=== PATIENT | female | born 1960 | race Caucasian/White ===

== ENCOUNTER → 2018-08-02 | Outpatient (CLI) | payer OTHER ==
--- NOTE | 2018-08-04 13:27 | MM ---
Reason for exam: screening (asymptomatic). Last mammogram was performed 2 years and 2 months ago. History: Patient is postmenopausal. Took hormonal contraceptives for 2 years. Physical Findings: A clinical breast exam by your physician is recommended on an annual basis and results should be correlated with mammographic findings. MG Screening Mammo w CAD Bilateral CC and MLO view(s) were taken. Prior study comparison: May 25, 2016, bilateral MG screening mammo w CAD. February 23, 2015, bilateral MG screening mammo w CAD. The breast tissue is heterogeneously dense. This may lower the sensitivity of mammography. No significant changes when compared with prior studies. ASSESSMENT: Negative, BI-RAD 1 RECOMMENDATION: Routine screening mammogram of both breasts in 1 year.
== END ==
LOC: RADMAMWWP 09:04
PROVIDERS: ATTEND Obstetrics & Gynecology
DX: Z12.31 Encounter for screening mammogram for malignant neoplasm of breast (principal)
CPT/HCPCS: 77067

== ENCOUNTER → 2018-08-18 | Outpatient (CLI) | payer OTHER ==
--- NOTE | 2018-08-19 04:33 | CT ---
EXAMINATION TYPE: CT facial bones wo/w con DATE OF EXAM: 08/18/2018 COMPARISON: None HISTORY: 57 year-old female left cheek swelling for one year TECHNIQUE: Contiguous axial scanning of the facial bones before and after administration of 100 mL Is ovue 300 IV contrast. Coronal reconstructions performed. CT DLP: 1297.4 mGycm Automated exposure control for dose reduction was used. FINDINGS: There is rightward nasal septal deviation. No facial bone fractures. Orbits and globes appear intact. Visualized intracranial structures show no gross abnormality. Left-sided conchal bullosa incidentally noted. Only trace mucosal thickening right maxillary sinus. Partially visualized parotid glands appear atrophic. There is dental amalgam artifact which causes so me limitation. Submandibular glands appear satisfactory and symmetrical. Nasopharynx and oropharynx appear clear. Some asymmetrically larger lymph nodes in the left submandib ular region measuring up to 7 mm. IMPRESSION: 1. RIGHTWARD NASAL SEPTAL DEVIATION, TRACE MUCOSAL THICKENING RIGHT MAXILLARY SINUS, AND INCIDENTAL L EFT-SIDED CONCHAL BULLOSA. 2. SOME ASYMMETRICALLY LARGER LEFT SUBMANDIBULAR SPACE LYMPH NODES MEASURING UP TO 7 MM, PROBABLY JANES CTIVE/POST INFLAMMATORY. 3. ATROPHIC PAROTID GLANDS PARTIALLY VISUALIZED. NO SPECIFIC ABNORMALITY OTHERWISE SEEN.
== END ==
LOC: RADCTMAIN 17:30
PROVIDERS: ATTEND Otolaryngology
DX: R22.0 Localized swelling, mass and lump, head (principal)
CPT/HCPCS: 70488; Q9967

== ENCOUNTER → 2019-06-01 | Outpatient (CLI) | payer OTHER ==
--- NOTE | 2019-06-01 10:52 | ECHOF ---
Referral Reason:[id number] Dizziness MEASUREMENTS -------- HEIGHT: 162.6 cm WEIGHT: 59.0 kg BP: 126/69 RVIDd: 2.9 cm (< 3.3) IVSd: 1.1 cm (0.6 - 1.1) LVIDd: 2.9 cm (3.9 - 5.3) LVPWd: 0.9 cm (0.6 - 1.1) IVSs: 1.4 cm LVIDs: 2.5 cm LVPWs: 1.4 cm LA Diam: 2.9 cm (2.7 - 3.8) LAESV Index (A-L): 23.36 ml/m Ao Diam: 2.6 cm (2.0 - 3.7) AV Cusp: 1.7 cm (1.5 - 2.6) MV EXCURSION: 14.555 mm (> 18.000) MV EF SLOPE: 172 mm/s (70 - 150) EPSS: 0.3 cm MV E Irwin: 0.83 m/s MV DecT: 129 ms MV A Irwin: 0.90 m/s MV E/A Ratio: 0.92 RAP: 5.00 mmHg RVSP: 26.68 mmHg TAPSE: 21.80 mm FINDINGS -------- Sinus rhythm. This was a technically adequate study. The left ventricular size is normal. There is borderline concentric left ventricular hypertrophy. Overall left ventricular systolic function is normal with, an EF between 55 - 60 %. The right ventricle is normal in size. Normal LA size by volume 22+/-6 ml/m2. The right atrial size is normal. Interatrial and interventricular septum intact. The aortic valve is trileaflet, and appears structurally normal. No aortic stenosis or regurgitation. The mitral valve is normal. There is trace to mild mitral regurgitation. Mild tricuspid regurgitation present. Right ventricular systolic pressure is normal at < 35 mmHg. The right ventricular systolic pressure, as measured by Doppler, is 26.68mmHg. There is no pulmonic regurgitation present. The aortic root size is normal. Normal inferior vena cava with normal inspiratory collapse consistent with estimated right atrial pre ssure of 5 mmHg. There is no pericardial effusion. CONCLUSIONS -------- 1. Sinus rhythm. 2. This was a technically adequate study. 3. The left ventricular size is normal. 4. There is borderline concentric left ventricular hypertrophy. 5. Overall left ventricular systolic function is normal with, an EF between 55 - 60 %. 6. Normal LA size by volume 22+/-6 ml/m2. 7. The aortic valve is trileaflet, and appears structurally normal. No aortic stenosis or regurgitati on. 8. The mitral valve is normal. 9. There is trace to mild mitral regurgitation. 10. Mild tricuspid regurgitation present. 11. Right ventricular systolic pressure is normal at < 35 mmHg. 12. There is no pulmonic regurgitation present. 13. There is no pericardial effusion. REGULATION SUPERVISOR: Shwetha Al RDCS
--- NOTE | 2019-06-05 11:27 | HM ---
HOLTER MONITOR REPORT Patient was monitored for 24 hours. Baseline rhythm is sinus mechanism with normal conduction. The average rate 73 beats per minute, minimum 48, maximum 117 beats per minute. Ventricular ectopic activity was present in form of rare single PACs. No supraventricular ectopic activity was noted. No diary was available. CONCLUSION: 1. Sinus mechanism baseline rhythm. 2. Rare supraventricular ectopic activity. 3. No ventricular ectopic activity. 4. No diary was available. MMODL / IJN: [id number] /
== END | disposition home or self-care (01) ==
LOC: RADECHMAIN 08:26
PROVIDERS: ATTEND Family Medicine
DX: I08.1 Rheumatic disorders of both mitral and tricuspid valves (principal); R94.39 Abnormal result of other cardiovascular function study
CPT/HCPCS: 93225; 93226; 93306

== ENCOUNTER → 2023-11-20 | Outpatient (CLI) | payer BC ==
--- NOTE | 2023-11-20 11:26 | BD ---
EXAMINATION TYPE: Axial Bone Density DATE OF EXAM: 11/20/2023 CLINICAL HISTORY: 63 years old Female. ICD-10 CODE: Z13.820 ENCOUNTER FOR SCREENING FOR OSTEOPOROSIS Height: 64 Weight: 129.7 FRAX RISK QUESTIONS: Alcohol (3 or more units per day): no Family History (Parent hip fracture): no Glucocorticoids (More than 3mos): no (Ex: prednisone, prednisolone, methylprednisolone, dexamethasone, and hydrocortisone). History of Fracture in Adulthood: no Secondary Osteoporosis: 1. Type 1 Diabetes: no 2. Hyperthyroidism: no 3. Menopause before 45: no 4. Malnutrition: no 5. Chronic liver disease: no Rheumatoid Arthritis: no Current Tobacco Use: no RISK FACTORS HISTORY OF: Surgery to Spine/Hip(right/left)/Wrist (right/left): no EXAM MEASUREMENTS: Bone mineral densitometry was performed using the [employer] System. Bone mineral density as measured about the Lumbar spine is: ----- L1-L4(G/cm2): 0.893 T Score Values are as follows: ----- L1: -2.1 ----- L2: -2.4 ----- L3: -2.5 ----- L4: -2.6 ----- L1-L4: -2.4 Z Score Values are as follows: ----- L1: -0.3 ----- L2: -0.6 ----- L3: -0.7 ----- L4: -0.8 ----- L1-L4: -0.6 Bone mineral density has: decreased -15.8 % since study of: 02.23.2015 Bone mineral density about the R hip (g/cm2): 0.798 Bone mineral density about the L hip (g/cm2): 0.823 T Score values are as follows: -----R Neck: -2.0 -----L Neck: -1.7 -----R Total: -1.7 -----L Total: -1.3 Z Score values are as follows: -----R Neck: -0.4 -----L Neck: -0.1 -----R Total: -0.4 -----L Total: -0.1 Bone mineral density has: decreased -6.4 % since study of: 02.23.2015 FRAX%s: The graph provided illustrates a 10.2% chance for a major osteoporotic fx and a 1.7% chance f or the hips probability for fx in 10 years time. IMPRESSION: Osteopenia (T Score between -2.5 and -1). There is slightly increased risk of fracture and the patient may be considered for treatment. Re-Screen 2-5 years. NOTE: T-SCORE=SD OF THE YOUNG ADULT MEAN.
--- NOTE | 2023-11-22 19:09 | MM ---
Reason for Exam: Screening (asymptomatic). Last mammogram was performed 5 year(s) and 3 month(s) ago. Patient History: Menarche at age 9. First Full-Term at age 22. Left ovary removed at age 54. Right ovary removed at age 54. Hysterectomy at age 54. Postmenopausal. Patient used Hormonal Contraceptives for 2 years. Risk Values: Mer 5 year model risk: 1.6%. NCI Lifetime model risk: 6.2%. Prior Study Comparison: 02/23/2015 Bilateral Screening Mammogram, [facility]. 05/25/2016 Bilateral Screening Mammogram, [facility]. 08/02/2018 Bilateral Screening Mammogram, [facility]. Tissue Density: The breasts are heterogeneously dense, which may obscure small masses. Findings: Analyzed By CAD. The pattern is symmetrical. No significant interval change is evident. No suspicious groups of microcalcifications, spiculated or lobular masses, architectural distortion or other secondary signs of malignancy are mammographically apparent. Overall Assessment: Benign, BI-RAD 2 Management: Screening Mammogram of both breasts in 1 year. A negative mammogram report should not preclude additional follow up of suspicious palpable abnormalities. Patient should continue monthly self breast exam. A clinical breast exam by your physician is recommended on an annual basis and results should be correlated with mammographic findings. Note on Mer scores and lifetime risk: 1. A Mer score greater than 3% is considered moderate risk. If this is the case, consider specialist referral to assess eligibility for a risk reducing agent. 2. If overall lifetime risk for the development of breast cancer is 20% or higher, the patient may qualify for future screening with alternating mammogram and breast MRI. Electronically signed and approved by: Dereck Duque D.O. Radiologis
== END | disposition home or self-care (01) ==
LOC: RADMAMWWP 08:45
PROVIDERS: ATTEND Family Medicine
DX: Z12.31 Encounter for screening mammogram for malignant neoplasm of breast (principal); M81.0 Age-related osteoporosis without current pathological fracture; M85.89 Other specified disorders of bone density and structure, multiple sites; Z78.0 Asymptomatic menopausal state; Z13.820 Encounter for screening for osteoporosis
CPT/HCPCS: 77067; 77080

== ENCOUNTER → 2024-09-28 | Outpatient (CLI) | payer BC ==
--- NOTE | 2024-09-28 09:02 | CT ---
EXAMINATION TYPE: CT heart w calcium score DATE OF EXAM: 09/28/2024 COMPARISON: None CLINICAL INDICATION: Female, 64 years old with history of Z91.89 OTH PERSONAL RISK FACTORS, NOT ELSEW HERE CL; PHH, high cholesterol levels TECHNIQUE: Prospective Gating was used. Slice thickness: 3mm. Density threshold (HU): 130, Pixel threshold: 3, Algorithm: discrete. CT DLP: 67.[address] CTDI: mGy Automated exposure control for dose reduction was used. FINDINGS: CT CALCIUM SCORING Coronary calcium is a marker for plaque (fatty deposits) in a blood vessel or atherosclerosis (harden ing of the arteries). The presence and amount of calcium detected in a coronary artery by the CT sca n, indicates the presence and amount of atherosclerotic plaque. These calcium deposits appear years before the development of heart disease symptoms such as chest pain and shortness of breath. A calcium score is computed for each of the coronary arteries based upon the volume and density of th e calcium deposits. This can be referred to as your calcified plaque burden. It does not correspond directly to the percentage of narrowing in the artery but does correlate with the severity of the un derlying coronary atherosclerosis. RESULTS Region: LM Calcium Score ([place]): 0 Volume (mm3): 0 Mass (g): 0 Region: RCA Calcium Score ([place]): 0 Volume (mm3): 0 Mass (g): 0 Region: LAD Calcium Score ([place]): 0 Volume (mm3): 0 Mass (g): 0 Region: CX Calcium Score ([place]): 0 Volume (mm3): 0 Mass (g): 0 Region: PDA Calcium Score ([place]): 0 Volume (mm3): 0 Mass (g): 0 Total: Calcium Score ([place]): 0 Volume (mm3): 0 Mass (g): 0 TOTAL CALCIUM SCORE: 0 IMPRESSION: Calcium Score: 0 Implication: No identifiable plaque Risk of Coronary Artery Disease: Very low, generally less than 5% CALCIUM SCORE IMPLICATION RISK OF C ORONARY ARTERY DISEASE 0 No identifiable plaque Very low, generally less than 5% 1-10 Minimal identifiable plaque Very unlikely, less than 10% 11-100 Definite, at least mild atherosclerotic plaque Mild or m inimal coronary narrowings likely 101-400 Definite, at least moderate atherosclerotic plaque Mild coronary ar peewee disease highly likely, significant narrowing possible 401 or Higher Extensive atherosclerotic plaque High lik elihood of at least one significant coronary narrowing [facility], , 09/28/2024 8:59 AM
== END | disposition home or self-care (01) ==
LOC: RADCTMAIN 08:11
PROVIDERS: ATTEND Family Medicine
DX: Z91.89 Other specified personal risk factors, not elsewhere classified (principal)
CPT/HCPCS: 75571